=== PATIENT | female | born 1970 | race Caucasian/White ===

== ENCOUNTER 2019-04-03 10:31 | Emergency (ER) | payer OTHER ==
[~2019-04-03] VITALS: Ht 157.5 cm; Wt 67.7 kg
[2019-04-03] MEDS ORDERED: BENADRYL25 MG PO ×2 (10:41→11:03)
== END 2019-04-03 12:01 | disposition home or self-care (01) ==
LOC: ED 10:31
DX: T63.441A Toxic effect of venom of bees, accidental (unintentional), initial encounter (principal); F17.200 Nicotine dependence, unspecified, uncomplicated
CPT/HCPCS: 99282; J1100